=== PATIENT | female | born 1985 | race Caucasian/White ===

== ENCOUNTER 2016-10-05 10:51 | Emergency (ER) | payer OTHER ==
[2016-10-05 11:00] VITALS: BP 103/73; PULSE 101; RESP 17; TEMP 97.6
[2016-10-05] MEDS ORDERED: LIDOCAINE VISCOUS 2% 15 ML CUP MUCOUS MEM ONE (11:19)
--- NOTE | 2016-10-05 11:27 | ED ---
General Adult HPI - General Chief complaint: ENT Stated complaint: glass in mouth Time Seen by Provider: 10/05/16 11:08 Source: patient Mode of arrival: ambulatory Limitations: no limitations - History of Present Illness Initial comments: Patient is a 30-year-old female who presents to the emergency department with concern that there is a sliver of glass in her lower lip. Patient reports that yesterday after showering she got dressed and her clean clothes and noted that her clothes were all covered with very fine shards of glass. She reports that she was attempting to wipe off her face when she inadvertently wiped her lips with her sleep which had glass on it. Patient states she thought that she had rinsed all the glass away but this morning woke up and believes there is a small shard of glass in her lip. is unsure where the glass came from, she reports that it was an entire load of clothes. She states she plans to rewash and dry these closed to prevent this from happening again. Denies any other injuries or concerns. - Related Data Home Medications Medication Instructions Recorded Confirmed Control(Unknown) 1 tab PO DAILY 10/05/16 10/05/16 Ibuprofen [Motrin] 800 mg PO Q8H PRN 10/05/16 10/05/16 Allergies Allergy/AdvReac Type Severity Reaction Status Date / Time No Known Allergies Allergy Verified 10/05/16 11:05 Review of Systems ROS Statement: Those systems with pertinent positive or pertinent negative responses have been documented in the HPI. ROS Other: All systems not noted in ROS Statement are negative. Eyes: Denies: vision change ENT: Reports: other (Abrasion to lip with concern for sliver of glass). Denies : throat pain Respiratory: Denies: cough, dyspnea, wheezes Cardiovascular: Denies: chest pain, palpitations Skin: Denies: rash, lesions Hematological/Lymphatic: Denies: easy bleeding, easy bruising Past Medical History Past Medical History: No Reported History Additional Past Medical History / Comment(s): OPIATE ABUSE, IMPERFORATED ANUS, HEPATITIS c History of Any Multi-Drug Resistant Organisms: None Reported Additional Past Surgical History / Comment(s): Colostomy and reversal Past Psychological History: Anxiety, Bipolar, Depression Smoking Status: Current every day smoker Past Alcohol Use History: None Reported Past Drug Use History: Opiates General Exam Limitations: no limitations General appearance: alert, in no apparent distress Head exam: Present: atraumatic, normocephalic, normal inspection Eye exam: Present: normal appearance, PERRL ENT exam: Present: mucous membranes moist, other (Since left-sided lower lip has a small abrasion as well as a small white area which patient believes is a sliver of glass. I can see a small insertion point however I cannot palpate any glass.) Neck exam: Present: normal inspection. Absent: lymphadenopathy Respiratory exam: Present: normal lung sounds bilaterally. Absent: respiratory distress Cardiovascular Exam: Present: regular rate, normal rhythm GI/Abdominal exam: Present: distended. Absent: tenderness Rectal exam: Present: deferred Extremities exam: Present: normal inspection. Absent: tenderness, pedal edema Neurological exam: Present: alert, oriented X3, CN II-XII intact Psychiatric exam: Present: normal affect, normal mood Skin exam: Present: warm, dry, intact, normal color. Absent: rash Course Vital Signs 10/05/16 10:56 Temperature 97.6 F Pulse Rate 101 H Respiratory 17 Rate Blood Pressure 103/73 O2 Sat by Pulse 97 Oximetry Medical Decision Making - Medical Decision Making She was seen and evaluated history was obtained from the patient Physical exam is concerning for possibility of a splinter of glass in the left lower lip Viscous lidocaine was ordered for analgesia Disposition Clinical Impression: Foreign body in lip Disposition: HOME SELF-CARE Condition: Good Instructions: Soft Tissue Foreign Body (ED) Referrals: Rosy Andrew MD [Primary Care Provider] - 1-2 days
== END 2016-10-05 12:17 | disposition home or self-care (01) ==
LOC: EC 10:51
DX: S00.511A Abrasion of lip, initial encounter (principal); T18.0XXA Foreign body in mouth, initial encounter; F17.200 Nicotine dependence, unspecified, uncomplicated; Z79.3 Long term (current) use of hormonal contraceptives
CPT/HCPCS: 99283

== ENCOUNTER → 2016-10-05 | Outpatient (CLI) | payer OTHER ==
--- NOTE | 2016-10-05 13:17 | CT ---
EXAMINATION TYPE: CT brain wo con DATE OF EXAM: 10/05/2016 COMPARISON: 09/05/2011 HISTORY: 30-year-old female Headache TECHNIQUE: Examination was done in axial plane without intravenous contrast. Coronal and sagittal r econstructions performed. CT DLP: 1080 mGycm Automated exposure control for dose reduction was used. FINDINGS: Mild calvarial regarding artifacts are present. Within this limitation, there is no evidence of acute intracranial hemorrhage, acute ischemic change s, mass, mass-effect, or extra-axial fluid collection. There is no effacement of cerebral sulci or b ksenia subarachnoid cisterns. There is no hydrocephalus. There is no midline shift. Joiner-white matte r distinction is preserved. Incidental partially empty sella. The sinuses and mastoid air cells are well pneumatized. Orbits and globes are intact. Divergent gaze suggesting underlying strabismus. IMPRESSION: No acute intracranial abnormality seen. Divergent gaze suggests underlying strabismus.
== END | disposition home or self-care (01) ==
LOC: RADCTMAIN 12:20
PROVIDERS: ATTEND Family Medicine
DX: R51 Headache (principal); Z86.69 Personal history of other diseases of the nervous system and sense organs
CPT/HCPCS: 70450

== ENCOUNTER → 2016-11-20 | Outpatient (CLI) | payer OTHER ==
--- NOTE | 2016-11-20 13:17 | US ---
EXAMINATION TYPE: US thyroid st tissue head/neck DATE OF EXAM: 11/20/2016 COMPARISON: NONE CLINICAL HISTORY: E03.9 Hypothyroidism, R13.14 Dysphagia. GLAND SIZE: Right Lobe: 3.1 x 0.6 x 1.0 cm Overall Parenchyma: heterogenous Left Lobe: 3.1 x 0.8 x 0.9 cm Overall Parenchyma: heterogeneous Isthmus Thickness: 1.8 cm NODULES RIGHT: # of nodules measured on right: 0 LEFT: # of nodules measured on left: 0 ISTHMUS: # of nodules measured in the isthmus: 0 Bilateral neck scanned, no evidence of lymphadenopathy. IMPRESSION: NORMAL THYROID ULTRASOUND.
== END | disposition home or self-care (01) ==
LOC: RADUSWWP 12:45
PROVIDERS: ATTEND Family Medicine
DX: E03.9 Hypothyroidism, unspecified (principal); R13.14 Dysphagia, pharyngoesophageal phase
CPT/HCPCS: 76536

== ENCOUNTER 2016-11-28 20:43 | Emergency (ER) | payer OTHER ==
[2016-11-28 21:20] LABS: Appearance,Urine Clear (Clear); Bilirubin,Urine Negative (Negative); Glucose,Urine (UA) Negative (Negative); Ketones,Urine Negative (Negative); Leukocyte Esterase,Urine Moderate (Negative); Mucus,Urine Rare /hpf; Nitrite,Urine Negative (Negative); Particle Count 1113; Protein,Urine Negative (Negative); RBC,Urine 39 /hpf (0-5); Squamous Epithelial Cell,Urine 4 /hpf (0-4); UA Billing (MACRO vs. MICRO) MICRO; Urobilinogen,Urine <2.0 mg/dL (<2.0); WBC,Urine 6 /hpf (0-5)
--- NOTE | 2016-11-28 21:23 | ED ---
General Adult HPI - General Chief complaint: Nausea/Vomiting/Diarrhea Stated complaint: Diarrhea x2 weeks Time Seen by Provider: 11/28/16 21:03 Source: patient, RN notes reviewed Mode of arrival: ambulatory Limitations: no limitations - History of Present Illness Initial comments: 31-year-old female presents emergency department with a chief complaint of diarrhea. Patient has had diarrhea on and off the past 2 weeks. Patient states it is just coming out should even realize it. Patient denies any black or tarry likes to edition denies any blood in it. Patient states she hasn't had any fever chills. There is been one episode of nausea vomiting. Patient states she was on steroids a few weeks ago but denies any recent antibiotics. Patient denies any history of C. diff. Patient denies any other symptoms. Patient states she was concerned due to the continued diarrhea. He should be seen. She does not know if she is or not. Patient denies any recent fever, chills, shortness of breath, chest pain, back pain, abdominal pain, nausea vomiting, numbness or tingling, dysuria or hematuria, constipation, headaches or visual changes, or any other current symptoms. - Related Data Home Medications Medication Instructions Recorded Confirmed Ibuprofen [Motrin] 800 mg PO Q8H PRN 10/05/16 11/28/16 Gabapentin [Neurontin] 200 mg PO TID 11/28/16 11/28/16 Levothyroxine Sodium [Synthroid] 50 mcg PO DAILY 11/28/16 11/28/16 SUMAtriptan SUCCINATE [Imitrex] 100 mg PO DAILY PRN 11/28/16 11/28/16 Previous Rx's Medication Instructions Recorded Ciprofloxacin HCl [Cipro] 500 mg PO Q12HR #14 tablet 11/28/16 Diphenox-Atrop 2.5-0.025 mg 1 tab PO QID PRN #20 tablet 11/28/16 [Lomotil] Allergies Allergy/AdvReac Type Severity Reaction Status Date / Time No Known Allergies Allergy Verified 11/28/16 20:58 Review of Systems ROS Statement: Those systems with pertinent positive or pertinent negative responses have been documented in the HPI. ROS Other: All systems not noted in ROS Statement are negative. Past Medical History Past Medical History: Thyroid Disorder Additional Past Medical History / Comment(s): OPIATE ABUSE, IMPERFORATED ANUS, HEPATITIS C, migraines History of Any Multi-Drug Resistant Organisms: None Reported Past Surgical History: Section Additional Past Surgical History / Comment(s): Colostomy and reversal Past Psychological History: Anxiety, Bipolar, Depression Smoking Status: Current every day smoker Past Alcohol Use History: None Reported Past Drug Use History: Opiates General Exam - General Exam Comments Initial Comments: General: The patient is awake and alert, in no distress, and does not appear acutely ill. Eye: Pupils are equal, round and reactive to light, extra-ocular movements are intact; there is normal conjunctiva bilaterally. No signs of icterus. Ears, nose, mouth and throat: There are moist mucous membranes. Neck: The neck is supple, there is no tenderness. Cardiovascular: There is a regular rate and rhythm. No murmur, rub or gallop is appreciated. Respiratory: Lungs are clear to auscultation, respirations are non-labored, breath sounds are equal. No wheezes, stridor, rales, or rhonchi. Gastrointestinal: Soft, non-distended, non-tender abdomen without masses or organomegaly noted. There is no rebound or guarding present. No CVA tenderness. Bowel sounds are unremarkable. Back: There is no tenderness to palpation in the midline. There is no obvious deformity. No rashes noted. Musculoskeletal: Normal ROM, no tenderness, There is no pedal edema. There is no calf tenderness or swelling. Sensation intact. Pulses equal bilaterally 2+. Neurological: CN II-XII intact, There are no obvious motor or sensory deficits. Coordination appears grossly intact. Speech is normal. Skin: Skin is warm and dry and no rashes or lesions are noted. Psychiatric: Cooperative, appropriate mood & affect, normal judgment. Limitations: no limitations Course Vital Signs 11/28/16 11/28/16 20:47 22:22 Temperature 98.5 F 98.7 F Pulse Rate 95 68 Respiratory 18 17 Rate Blood Pressure 110/79 98/59 O2 Sat by Pulse 97 98 Oximetry Medical Decision Making - Medical Decision Making 31-year-old female presents emergency department with a chief complaint of diarrhea lab work is reviewed and negative Pending the stool culture the patient is negative for C. diff. There is concern for possible UTI. We'll start patient sign. Discussed follow-up with her doctor and follow-up. We discussed return parameters all the questions. She stated that she understood. - Lab Data Result diagrams: 11/28/16 21:45 11/28/16 21:45 Lab Results 11/28/16 11/28/16 11/28/16 Range/Units 21:12 21:12 21:21 WBC (3.8-10.6) k/uL RBC (3.80-5.40) m/uL Hgb (11.4-16.0) gm/dL Hct (34.0-46.0) % MCV (80.0-100.0) fL MCH (25.0-35.0) pg MCHC (31.0-37.0) g/dL RDW (11.5-15.5) % Plt Count (150-450) k/uL Neutrophils % % Lymphocytes % % Monocytes % % Eosinophils % % Basophils % % Neutrophils # (1.3-7.7) k/uL Lymphocytes # (1.0-4.8) k/uL Monocytes # (0-1.0) k/uL Eosinophils # (0-0.7) k/uL Basophils # (0-0.2) k/uL Sodium (137-145) mmol/L Potassium (3.5-5.1) mmol/L Chloride (98-107) mmol/L Carbon Dioxide (22-30) mmol/L Anion Gap mmol/L BUN (7-17) mg/dL Creatinine (0.52-1.04) mg/dL Est GFR (MDRD) Af Amer (>60 ml/min/1.73 sqM) Est GFR (MDRD) Non-Af (>60 ml/min/1.73 sqM) Glucose (74-99) mg/dL Calcium (8.4-10.2) mg/dL Total Bilirubin (0.2-1.3) mg/dL AST (14-36) U/L ALT (9-52) U/L Alkaline Phosphatase (38-126) U/L Total Protein (6.3-8.2) g/dL Albumin (3.5-5.0) g/dL Amylase (30-110) U/L Lipase (23-300) U/L Urine Color Light Yellow Urine Appearance Clear (Clear) Urine pH 8.0 (5.0-8.0) Ur Specific [place] 1.010 (1.001-1.035) Urine Protein Negative (Negative) Urine Glucose (UA) Negative (Negative) Urine Ketones Negative (Negative) Urine Blood Small H (Negative) Urine Nitrite Negative (Negative) Urine Bilirubin Negative (Negative) Urine Urobilinogen <2.0 (<2.0) mg/dL Ur Leukocyte Esterase Moderate H (Negative) Urine RBC 39 H (0-5) /hpf Urine WBC 6 H (0-5) /hpf Ur Squamous Epith Cells 4 (0-4) /hpf Urine Mucus Rare H (None) /hpf Urine HCG, Qual Not Detected (Not Detectd) C. difficile (EIA) Intrp Negative (Negative) 11/28/16 11/28/16 Range/Units 21:45 21:45 WBC 6.2 (3.8-10.6) k/uL RBC 3.96 (3.80-5.40) m/uL Hgb 12.1 (11.4-16.0) gm/dL Hct 36.0 (34.0-46.0) % MCV 90.9 (80.0-100.0) fL MCH 30.5 (25.0-35.0) pg MCHC 33.5 (31.0-37.0) g/dL RDW 14.5 (11.5-15.5) % Plt Count 196 (150-450) k/uL Neutrophils % 59 % Lymphocytes % 32 % Monocytes % 6 % Eosinophils % 1 % Basophils % 0 % Neutrophils # 3.7 (1.3-7.7) k/uL Lymphocytes # 2.0 (1.0-4.8) k/uL Monocytes # 0.3 (0-1.0) k/uL Eosinophils # 0.1 (0-0.7) k/uL Basophils # 0.0 (0-0.2) k/uL Sodium 142 (137-145) mmol/L Potassium 3.6 (3.5-5.1) mmol/L Chloride 108 H (98-107) mmol/L Carbon Dioxide 25 (22-30) mmol/L Anion Gap 9 mmol/L BUN 9 (7-17) mg/dL Creatinine 0.70 (0.52-1.04) mg/dL Est GFR (MDRD) Af Amer >60 (>60 ml/min/1.73 sqM) Est GFR (MDRD) Non-Af >60 (>60 ml/min/1.73 sqM) Glucose 96 (74-99) mg/dL Calcium 9.4 (8.4-10.2) mg/dL Total Bilirubin 0.4 (0.2-1.3) mg/dL AST 22 (14-36) U/L ALT 38 (9-52) U/L Alkaline Phosphatase 87 (38-126) U/L Total Protein 7.6 (6.3-8.2) g/dL Albumin 4.2 (3.5-5.0) g/dL Amylase 76 (30-110) U/L Lipase 132 (23-300) U/L Urine Color Urine Appearance (Clear) Urine pH (5.0-8.0) Ur Specific [place] (1.001-1.035) Urine Protein (Negative) Urine Glucose (UA) (Negative) Urine Ketones (Negative) Urine Blood (Negative) Urine Nitrite (Negative) Urine Bilirubin (Negative) Urine Urobilinogen (<2.0) mg/dL Ur Leukocyte Esterase (Negative) Urine RBC (0-5) /hpf Urine WBC (0-5) /hpf Ur Squamous Epith Cells (0-4) /hpf Urine Mucus (None) /hpf Urine HCG, Qual (Not Detectd) C. difficile (EIA) Intrp (Negative) - Radiology Data Radiology results: report reviewed, image reviewed Disposition Clinical Impression: UTI (urinary tract infection), Diarrhea Disposition: HOME SELF-CARE Condition: Stable Instructions: Acute Diarrhea (ED), Urinary Tract Infection in Women (ED) Additional Instructions: Please use medication as discussed. Please follow up with family doctor if symptoms have not improved over the next two days. Please return to the emergency room if your symptoms increase or worsen or for any other concerns. Prescriptions: Ciprofloxacin HCl [Cipro] 500 mg PO Q12HR #14 tablet Diphenox-Atrop 2.5-0.025 mg [Lomotil] 1 tab PO QID PRN #20 tablet PRN Reason: Diarrhea Referrals: Rosy Andrew MD [Primary Care Provider] - 1-2 days Time of Disposition: 22:42
[2016-11-28 21:54] LABS: Basophils % (A) 0 %; CHCM 34.3; Eosinophils # (A) 0.1 k/uL (0-0.7); Eosinophils % (A) 1 %; HGB 12.1 gm/dL (11.4-16.0); Luc # (Auto) 0.12; Luc % (Auto) 2; Lymphocytes % (A) 32 %; MCH 30.5 pg (25.0-35.0); MCHC 33.5 g/dL (31.0-37.0); MCV 90.9 fL (80.0-100.0); Mean Platelet Volume 7.6; Monocytes # (A) 0.3 k/uL (0-1.0); Monocytes % (A) 6 %; Neutrophils # (A) 3.7 k/uL (1.3-7.7); Neutrophils % (A) 59 %; RBC 3.96 m/uL (3.80-5.40); RDW 14.5 % (11.5-15.5); WBC 6.2 k/uL (3.8-10.6); WBC (Perox) 6.04
[2016-11-28 22:04] LABS: ALT 38 U/L (9-52); AST 22 U/L (14-36); Alkaline Phosphatase 87 U/L (38-126); Amylase 76 U/L (30-110); Anion Gap 9 mmol/L; Blood Urea Nitrogen 9 mg/dL (7-17); Calcium 9.4 mg/dL (8.4-10.2); Carbon Dioxide 25 mmol/L (22-30); Chloride 108 mmol/L (98-107); Glucose 96 mg/dL (74-99); Non-African American GFR(MDRD) >60 (>60 ml/min/1.73 sqM); Potassium 3.6 mmol/L (3.5-5.1); Sodium 142 mmol/L (137-145); Total Bilirubin 0.4 mg/dL (0.2-1.3); Total Protein 7.6 g/dL (6.3-8.2)
[2016-11-28 22:23] VITALS: BP 98/59; PULSE 68; RESP 17; TEMP 98.7
--- NOTE | 2016-11-28 22:28 | XR ---
EXAM: XR Abdomen Complete, 2 or More Views CLINICAL HISTORY: Reason: Pain TECHNIQUE: Frontal view of the abdomen/pelvis with upright view of the abdomen. COMPARISON: No relevant prior studies available. FINDINGS: Intraperitoneal space: No free air. Pelvic floor calcifications likely reflect phleboliths. Gastrointestinal tract: Unremarkable. No dilation. Bones/joints: Unremarkable. IMPRESSION: Normal abdominal x-rays.
== END 2016-11-28 22:56 | disposition home or self-care (01) ==
LOC: EC 20:43
DX: N39.0 Urinary tract infection, site not specified (principal); R19.7 Diarrhea, unspecified; R11.2 Nausea with vomiting, unspecified; E07.9 Disorder of thyroid, unspecified; F31.9 Bipolar disorder, unspecified; F41.9 Anxiety disorder, unspecified; F17.200 Nicotine dependence, unspecified, uncomplicated; Z79.899 Other long term (current) drug therapy
CPT/HCPCS: 36415; 74020; 80053; 81001; 81025; 82150; 83690; 85025; 87045; 87046; 87086; 87324; 99284

== ENCOUNTER → 2016-12-10 | Outpatient (CLI) | payer OTHER ==
--- NOTE | 2016-12-10 11:59 | XR ---
EXAMINATION TYPE: XR thoracic spine 2V DATE OF EXAM: 12/10/2016 COMPARISON: NONE HISTORY: 31-year-old female with back pain TECHNIQUE: 3 views FINDINGS: 12 rib-bearing thoracic vertebral bodies. All pedicles are visualized. Mild endplate spondylosis in t he mid thoracic spine. Vertebral body heights are preserved and alignment is maintained. 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 No vertebral compression collapse or malali gnment.
--- NOTE | 2016-12-10 12:01 | XR ---
EXAMINATION TYPE: XR lumbar spine 2 or 3V DATE OF EXAM: 12/10/2016 COMPARISON: 07/11/2011 HISTORY: 31-year-old female with low back pain for a few months TECHNIQUE: 3 views FINDINGS: 5 lumbar type vertebral bodies. Vertebral body heights are preserved and alignment is maintained. Dis c interspaces are relatively maintained. There appears to be posterior angulation at the sacrococcyge al junction suspected to been present on 2011 as well but only partially visualized at that time. IMPRESSION: 1. No vertebral compression collapse or malalignment. 2. Suspect old posteriorly angulated tailbone fracture.
--- NOTE | 2016-12-10 13:03 | FL ---
EXAMINATION: Cervical and Thoracic Esophagram DATE OF EXAM: 12/10/2016 CLINICAL INDICATION: 31-year-old female for pharyngoesophageal phase dysphagia, complaining of solid food sticking in throat area for about a year. COMPARISON: None Total Fluoroscopy Time: 1.24 minutes. Total images: 31. FINDINGS: The swallowing mechanism is normal and hypopharyngeal anatomy is preserved. However, moderate pirifor m sinus residuals are demonstrated. The thoracic portion has a normal course and caliber and normal motility. The mucosa is normal and no persistent filling defect is encountered. No hiatal hernia is present. No gastroesophageal reflux is identified. IMPRESSION: 1. Prominent barium coating in the region of the piriform sinuses could reflect some pharyngeal dysmo tility and moderate residuals. Consider direct visualization to exclude polyps or other mucosal lesio ns pelvis is considered less likely. 2. Otherwise, unremarkable esophagram.
== END | disposition home or self-care (01) ==
LOC: RADFLWHC 10:15
PROVIDERS: ATTEND Family Medicine
DX: M51.34 Other intervertebral disc degeneration, thoracic region (principal); M54.5 Low back pain; R20.2 Paresthesia of skin; R13.14 Dysphagia, pharyngoesophageal phase
CPT/HCPCS: 72070; 72100; 74220

== ENCOUNTER → 2018-06-03 | Outpatient (CLI) | payer OTHER ==
--- NOTE | 2018-07-08 09:17 | EM ---
EVENT MONITOR In the event monitor, there were several auto captures, but there was no patient initiated recordings noted. There was some artifact on one recording most of the recording were sinus rhythm with a baseline artifact. There was 1 episode of what appeared to be a paroxysmal supraventricular tachycardia on 06/05/2018 at about 12:09 am. This was an auto capture. Most of the other recordings were sinus rhythm and sinus tachycardia. Rare isolated PVCs were also noted and 1 strip had a ventricular bigeminy. Final impression this 30 day event monitor had predominant sinus rhythm. There was 1 episode of paroxysmal supraventricular tachycardia, which was auto captured at 12:09 a.m. on June 05. There was another episode of ventricular bigeminy. No specific symptoms were reported by the patient. MMODL / IJN: [id number] /
== END | disposition home or self-care (01) ==
LOC: RADECHMAIN 12:01
PROVIDERS: ATTEND Nuclear Medicine Nuclear Cardiology
DX: I47.1 Supraventricular tachycardia (principal)
CPT/HCPCS: 93270; 93271

== ENCOUNTER 2018-07-10 09:06 | Day surgery (SDC) | payer OTHER ==
[2018-07-08 15:11] VITALS: BMI 26.1
[~2018-07-10 09:06] MED LIST: LACTATED RINGERS 1,000 ML IV SCH
[2018-07-10 09:59] VITALS: RESP 16; TEMP 99.2
[2018-07-10] MEDS ORDERED: LIDOCAINE 1% 20 ML VIAL (10MG/ML) FOR IV START INTRADERMA ONE (10:03)
[2018-07-10] MEDS ORDERED: LIDOCAINE 1% INJ 10MG/ML (20 ML MDV) ONE (10:30)
[2018-07-10] MEDS ORDERED: PROPOFOL 10 MG/ML 20 ML VIAL IV ONE (10:30)
[2018-07-10] MEDS ORDERED: fentaNYL (PF) 50 MCG/ML 2 ML AMP ONE (10:30)
--- NOTE | 2018-07-10 11:11 | P.PCN ---
Date of Procedure: 07/10/18 Procedure(s) Performed: Procedures: Esophagogastroduodenoscopy and biopsy. Preoperative diagnosis: Iron deficiency anemia. Postoperative diagnosis: 1. Small sliding hiatal hernia but no obvious esophagitis or complicated reflux disease. 2. Mild antral gastritis. 3. Biopsies obtained from the duodenum, antrum and esophagus. 4. Normal colon and terminal ileum. Preparation: HalfLytely prep. Sedation: Was provided by anesthesia Brief clinical history: The patient is a 32-year-old female with history of iron deficiency anemia. We have treated her for HCV infection with harvoni with good response. This evaluation is to assess for a possible GI source of bleeding. No GI symptoms or overt bleeding. Procedure: With the patient on her left lateral decubitus position and after informed consent and adequate sedation, I passed a Olympus-GIF H 190 video upper endoscope through the cricopharyngeus down the esophagus. GE junction was around 38 cm from the incisors and there was a small sliding hiatal hernia but no obvious esophagitis or complicated reflux disease. The endoscope was then passed into the stomach which was insufflated with air and inspected in detail including the retroflex view in the cardia. There was minimal mottling and erythema in the antrum but no ulcers or erosions. Pyloric channel, duodenal bulb, post bulbar area and descending duodenum appeared within normal limits. Because of her anemia, I obtained biopsies from the duodenum, antrum and esophagus then the endoscope was withdrawn and I proceeded to perform the colonoscopy. Perianal area did not show any fissures or fistulas. There were no masses felt on digital rectal examination. The Olympus CFH 190L video colonoscope was then inserted in the rectum in the usual fashion and advanced to the cecum. I intubated the ileocecal valve and examined the terminal ileum. Terminal ileum and colon appeared healthy with no edema, erythema, friability, exudation, ulceration or spontaneous bleeding. No polyps or tumors were seen or any obvious diverticular disease or other pathology. I retroflexed the endoscope in the rectum before the endoscope was withdrawn. The patient tolerated the procedure well. Plan: The patient was reassured. Will await biopsy results. She will follow-up with you as planned and I will be happy to see in the future if there is evidence to suggest GI bleeding as the cause of ongoing blood loss anemia. Contingency would be to perform capsule endoscopy at that point.
[2018-07-10 11:40] VITALS: BP 103/64; PULSE 64
== END 2018-07-10 12:11 | disposition home or self-care (01) ==
LOC: ORWHC2ENDO 09:06
DX: D50.9 Iron deficiency anemia, unspecified (principal); K29.50 Unspecified chronic gastritis without bleeding; K44.9 Diaphragmatic hernia without obstruction or gangrene; E07.9 Disorder of thyroid, unspecified; G43.909 Migraine, unspecified, not intractable, without status migrainosus; F11.10 Opioid abuse, uncomplicated; F17.210 Nicotine dependence, cigarettes, uncomplicated; Z79.1 Long term (current) use of non-steroidal anti-inflammatories (NSAID); Z79.3 Long term (current) use of hormonal contraceptives; Z79.890 Hormone replacement therapy
CPT/HCPCS: 81025; 88305; 45378; 43239; J2001; J3010; J2704